=== PATIENT | male | born 1975 | race American Indian/Alaskan Native ===

== ENCOUNTER 2017-09-15 01:33 | Emergency (ER) | payer MEDICARE ==
[2017-09-15 02:39] LABS: Amphetamine Screen,Urine PRESUMPTIVE NEGATIVE; Benzodiazepines Screen,Urine PRESUMPTIVE NEGATIVE; Cannabinoid Screen,Urine PRESUMPTIVE NEGATIVE; Cocaine Screen,Urine PRESUMPTIVE NEGATIVE; Methadone Screen,Urine PRESUMPTIVE NEGATIVE; Opiate Screen,Urine PRESUMPTIVE NEGATIVE
[2017-09-15 02:41] LABS: Bilirubin,Urine NEG (Negative); Blood,Urine NEG (Negative); Color,Urine Yellow (Yellow); Hyaline Casts,Urine 4 /LPF; Mucus,Urine 1+ /HPF; Protein,Urine <15 mg/dL mg/dL (Negative)
[2017-09-15 03:17] LABS: Hematocrit 39.9 % (35.5-45.6); Hemoglobin 13.7 gm/dl (11.8-15.2); Mean Corpuscular HGB Conc 34 % (32-34); Mean Corpuscular Hemoglobin 35 pg (28-32); Mean Corpuscular Volume 102 fl (84-94); Platelet Count 259 K/mm3 (140-440); Red Cell Distribution Width 12.9 % (13.2-15.2)
--- NOTE | 2017-09-15 03:26 | Emergency Department Report ---
ED Psych HPI - General Chief Complaint: Psych Stated Complaint: SUICIDAL IDEATIONS Time Seen by Provider: 09/15/17 03:11 Source: patient, EMS Mode of arrival: Stretcher - History of Present Illness Initial Comments: Patient is a 41 years old male history of schizophrenia. Patient presented to the ER stating that he is been hearing voices commanding him to kill himself by overdosing on prescription medicine. Patient stated that he had previous episode of drug overdose. He denied any visual hallucination or homicidal ideation. MD Complaint: suicidal ideation -: days(s) Associated Psychiatric Symptoms: suicidal ideation, auditory hallucinations Quality: constant Associated Symptoms: denies other symptoms. denies: confusion, headache, shortness of breath, nausea, vomiting, syncope, insomnia Treatments Prior to Arrival: none If Self Harm: admits thoughts of, has plan, intentional overdose - Related Data Home Medications Medication Instructions Recorded Confirmed Last Taken Benztropine [Cogentin] 1 mg PO QHS 09/15/17 09/15/17 09/14/17 OLANzapine [ZyPREXA] 10 mg PO QHS 09/15/17 09/15/17 09/14/17 Allergies Allergy/AdvReac Type Severity Reaction Status Date / Time No Known Allergies Allergy Unverified 09/15/17 01:47 ED Review of Systems ROS: Stated complaint: SUICIDAL IDEATIONS Other details as noted in HPI Comment: All other systems reviewed and negative Constitutional: denies: chills, fever Respiratory: denies: cough, orthopnea, shortness of breath, SOB with exertion, SOB at rest, wheezing Cardiovascular: denies: chest pain, palpitations, dyspnea on exertion Gastrointestinal: denies: abdominal pain, nausea, vomiting, diarrhea, constipation, hematemesis, melena, hematochezia Musculoskeletal: denies: back pain Neurological: denies: headache, weakness, numbness, paresthesias, confusion, abnormal gait ED Past Medical Hx - Past Medical History Previous Medical History?: Yes Hx Psychiatric Treatment: Yes (schizo) - Surgical History Past Surgical History?: Yes Additional Surgical History: left hip - Social History Smoking Status: Never Smoker Substance Use Type: None - Medications Home Medications: Home Medications Medication Instructions Recorded Confirmed Last Taken Type Benztropine [Cogentin] 1 mg PO QHS 09/15/17 09/15/17 09/14/17 History OLANzapine [ZyPREXA] 10 mg PO QHS 09/15/17 09/15/17 09/14/17 History ED Physical Exam - General Limitations: No Limitations General appearance: alert, in no apparent distress - Head Head exam: Present: atraumatic, normocephalic, normal inspection - Eye Eye exam: Present: normal appearance, PERRL Pupils: Present: normal accommodation - ENT ENT exam: Present: normal exam, normal orophraynx, mucous membranes moist - Neck Neck exam: Present: normal inspection, full ROM. Absent: tenderness, meningismus, lymphadenopathy, thyromegaly - Respiratory Respiratory exam: Present: normal lung sounds bilaterally. Absent: respiratory distress, wheezes, rales, rhonchi, stridor, chest wall tenderness, accessory muscle use, decreased breath sounds, prolonged expiratory - Cardiovascular Cardiovascular Exam: Present: regular rate, normal rhythm, normal heart sounds - GI/Abdominal GI/Abdominal exam: Present: soft, normal bowel sounds. Absent: distended, tenderness, guarding, rebound, rigid, organomegaly, mass, bruit, pulsatile mass , hernia - Extremities Exam Extremities exam: Present: normal inspection, full ROM, normal capillary refill - Back Exam Back exam: Present: normal inspection, full ROM. Absent: tenderness, CVA tenderness (R), CVA tenderness (L), muscle spasm, rash noted - Neurological Exam Neurological exam: Present: alert, oriented X3, CN II-XII intact, normal gait - Psychiatric Psychiatric exam: Present: depressed, suicidal ideation. Absent: agitated, manic, homicidal ideation - Skin Skin exam: Present: warm, intact, normal color ED Course Vital Signs 09/15/17 01:46 Temperature 97.9 F Pulse Rate 88 Respiratory 18 Rate Blood Pressure 107/66 [Left] O2 Sat by Pulse 98 Oximetry Critical care attestation.: If time is entered above; I have spent that time in minutes in the direct care of this critically ill patient, excluding procedure time. ED Disposition Clinical Impression: Suicidal ideation Disposition: [id number]/TX-[id number] PSY HOSP/PSY UNIT Is pt being admited?: No Condition: Stable Referrals: PRIMARY CARE, [Primary Care Provider] - 3-5 Days
[2017-09-15 04:09] LABS: BUN/Creatinine Ratio 13; Blood Urea Nitrogen 12 mg/dL (9-20); Calcium 8.6 mg/dL (8.4-10.2); Hemolysis Index 2
[2017-09-15 04:32] LABS: Basophils % (Manual) 0 % (0.0-1.8); Total Cells Counted 100
[2017-09-15 04:33] LABS: Anisocytosis 1+; Hypochromasia 1+; Platelet Estimate Appe
--- NOTE | 2017-09-15 15:32 | Consultation ---
History of Present Illness - Reason for Consult Consult date: 09/15/17 Reason for consult: Initial Psychiatric Evaluation - Chief Complaint Chief complaint: " I started hearing voices and having suicidal thoughts." - History of Present Psychiatric Illness Deangelo is a 41-year-old -[place] male who presents to the emergency room for psychosis and suicidal thoughts. Patient has a past psychiatric history of Schizophrenia (1998). Per patient he is compliant with Zyprexa and Cogentin. Patient reports that a couple of days ago he began to have command auditory hallucinations and depression. He states "the voices are telling me to harm myself and others." He endorses increase anxiety, paranoid thoughts, visual hallucinations, and auditory hallucinations. He reports fair energy, appetite, and sleep. Patient verbalizes that he is unable to concentrate secondary to auditory/visual hallucinations. He denies drug abuse. Current medications: Zyprexa 20 mg by mouth daily at bedtime, Cogentin 2 mg by mouth daily at bedtime Allergies: Haldol-muscle spasms, Risperdal-blurred vision Past psychiatric history: Schizophrenia (1998); more than 5 previous inpatient hospitalizations; no outpatient psychiatrist; 3-4 previous suicide attempts via overdose History of trauma/abuse: Patient denies history of sexual, physical, menstrual abuse. Drugs/alcohol abuse history: Patient denies substance abuse. UDS negative. Social history: 10th grade; Disability-[employer], approximately $700; they're support system; 10 years ( provider is unsure. Patient hesitant when answering the questions); No children. Family history: Patient denies. Medications and Allergies Allergies Allergy/AdvReac Type Severity Reaction Status Date / Time No Known Allergies Allergy Unverified 09/15/17 01:47 Home Medications Medication Instructions Recorded Confirmed Last Taken Type Benztropine [Cogentin] 1 mg PO QHS 09/15/17 09/15/17 09/14/17 History OLANzapine [ZyPREXA] 10 mg PO QHS 09/15/17 09/15/17 09/14/17 History Mental Status Exam - Vital signs Last Vital Signs Temp 97.6 F 09/15/17 09:00 Pulse 74 09/15/17 09:00 Resp 20 09/15/17 09:00 BP 127/73 09/15/17 09:00 Pulse Ox 98 09/15/17 09:00 - Exam Narrative exam: Mental status exam: Gen. appearance: Hospital gown, poorly groomed Behavior: Cooperative Sensorium: Distracted Psychomotor and musculoskeletal activity: Ambulatory Mood: "A little depressed." Anxious, dysphoric, depressed Affect: Constricted Speech/language: Slow, delayed Thought processes: Blocking Thought content: Impoverished, paranoid Perception: Auditory hallucinations-" the voices are telling me to harm people and myself. I hear profanity and spirits talking to me."; Visual hallucinations-"I see shadows and pictures." Suicidal ideation/plan: The plan is to overdose on pills secondary to command auditory hallucinations Homicidal ideation/plan: Patient denies Judgment: Poor Insight: Poor Results Result Diagrams: 09/15/17 02:32 09/15/17 02:32 Abnormal lab results 09/15/17 09/15/17 09/15/17 Range/Units 02:06 02:32 02:32 MCV (84-94) fl MCH (28-32) pg RDW (13.2-15.2) % Seg Neuts % (Manual) (40.0-70.0) % Lymphocytes % (Manual) (13.4-35.0) % Monocytes % (Manual) (0.0-7.3) % Eosinophils % (Manual) (0.0-4.3) % Monocytes # (Manual) (0.0-0.8) K/mm3 Eosinophils # (Manual) (0.0-0.4) K/mm3 Glucose (75-100) mg/dL Ur Specific [place] 1.033 H (1.003-1.030) Salicylates < 0.3 L (2.8-20.0) mg/dL Acetaminophen < 5.0 L (10.0-30.0) ug/mL 18 09/15/17 Range/Units 02:32 02:32 MCV 102 H (84-94) fl MCH 35 H (28-32) pg RDW 12.9 L (13.2-15.2) % Seg Neuts % (Manual) 35.0 L (40.0-70.0) % Lymphocytes % (Manual) 40.0 H (13.4-35.0) % Monocytes % (Manual) 17.0 H (0.0-7.3) % Eosinophils % (Manual) 8.0 H (0.0-4.3) % Monocytes # (Manual) 1.5 H (0.0-0.8) K/mm3 Eosinophils # (Manual) 0.7 H (0.0-0.4) K/mm3 Glucose 103 H (75-100) mg/dL Ur Specific [place]rod (1.003-1.030) Salicylates (2.8-20.0) mg/dL Acetaminophen (10.0-30.0) ug/mL All other labs normal. Assessment and Plan Assessment and plan: Impression: Deangelo is a 41 year old -[place] male who presents to the emergency with psychosis and suicidal thoughts. He has a past psychiatric history of schizophrenia. Today he presents internally preoccupied, distracted , anxious, and paranoid. He endorses suicidal ideations with plans to overdose and VH. He denies homicidal ideation/plan. UDS negative. DDx: Schizophrenia Plan/recommendation: 1. Continue 1013 and reassess in 24 hours. 2. Assist with placement to inpatient psychiatric facility. 3. Start Zyprexa 5mg po QHS for mood/psychosis and Cogentin 1mg po QHS for prevention of EPS. Educated patient on the possible metabolic side effects to medication. Patient verbalizes full understanding.
[2017-09-15] MEDS: COGENTIN PO SCH (22:11)
--- NOTE | 2017-09-16 15:02 | Progress Note ---
Subjective - Reason for Consult Consult date: 09/16/17 Reason for consult: Psychiatry Follow-up - Chief Complaint Chief complaint: "Why me" 41-year-old -[place] male who presents to the emergency room for psychosis and suicidal thoughts. Today the patient is calm during the assessment. He stated that the voices are telling him all types of things. He stated that the voices are overwhelming and because of that, he wanted to kill himself yesterday. He stated that he wish the voices would stop. He would not confirm or deny SI's. He denies HI's and VH's. He denies any side effects of his medications. Mental Status Exam - Vital signs Last Vital Signs Temp 98.6 F 09/16/17 11:21 Pulse 68 09/16/17 11:21 Resp 20 09/16/17 11:21 BP 114/71 09/16/17 11:21 Pulse Ox 98 09/16/17 11:21 - Exam Narrative exam: MSE: Appearance: calm, cooperative Behavior: regular eye contact Speech: regular rate and tone Mood: "okay" withdrawn Affect: flat Thought Process: circumstantial Thought Content: denies HI's and VH's, the patient would not confirm or deny SI 's Motor Activity: ambulatory Cognition: A/O x 3 Insight: poor Judgment: poor Assessment and Plan Impression: Hx of Schizophrenia. Today the patient is calm during the assessment. The patient would not confirm or deny SI's. UDS is negative. DDx: R/O Bipolar DO, Schizoaffective DO, MDD with psychosis Recommendation/Plan: Continue 1013 with placement to inpatient psy services. Continue Zyprexa 5 mg PO HS for mood/psychosis and Cogentin 0.5 mg PO HS for EPS prevention. Discussed possible metabolic side effects of Zyprexa with patient.
[2017-09-16] MEDS: COGENTIN PO SCH (22:20)
--- NOTE | 2017-09-17 12:22 | Progress Note ---
Subjective - Reason for Consult Consult date: 09/17/17 Reason for consult: Psychiatry Follow-up - Chief Complaint Chief complaint: "Hello" 41-year-old -[place] male who presents to the emergency room for psychosis and suicidal thoughts. Today the patient is calm during the assessment. He stated that the voices are still active. During the interview, the patient was looking around, possibly responding to some type of stimuli. He denies HI's and VH's. He stated, "I don't think I'm suicidal." He denies any side effects of his medication. Mental Status Exam - Vital signs Last Vital Signs Temp 97.8 F 09/16/17 20:00 Pulse 85 09/16/17 20:00 Resp 18 09/16/17 20:00 BP 109/77 09/16/17 20:00 Pulse Ox 100 09/16/17 20:00 - Exam Narrative exam: MSE: Appearance: calm, cooperative Behavior: regular eye contact Speech: regular rate and tone Mood: "okay" withdrawn Affect: flat Thought Process: circumstantial Thought Content: denies HI's and VH's Motor Activity: ambulatory Cognition: A/O x 3 Insight: variable Judgment: variable Assessment and Plan Impression: Hx of Schizophrenia. Today the patient is calm during the assessment. The patient would not confirm or deny SI's. UDS is negative. DDx: R/O Bipolar DO, Schizoaffective DO, MDD with psychosis Recommendation/Plan: Continue 1013 with placement to inpatient psy services. Increase Zyprexa to 10 mg PO HS for mood/psychosis and continue Cogentin 1 mg PO HS for EPS prevention. Discussed possible metabolic side effects of Zyprexa with patient.
[2017-09-17] MEDS: COGENTIN PO SCH (22:13)
[2017-09-18] MEDS: COGENTIN PO SCH (22:24)
[2017-09-19 17:54] VITALS: BP 97/61
== END 2017-09-19 11:30 ==
LOC: EEVIPCON 01:33 → ED 01:33
DX: F20.9 Schizophrenia, unspecified (principal); Z79.899 Other long term (current) drug therapy
CPT/HCPCS: 36415; 80048; 80307; 81001; 82962; 85007; 85025; 99285; G0480; 80320

== ENCOUNTER 2018-06-23 15:49 | Emergency (ER) | payer MEDICARE ==
--- NOTE | 2018-06-23 18:25 | Emergency Department Report ---
ED General Adult HPI - General Chief complaint: Psych Stated complaint: HEARING VOICES Time Seen by Provider: 06/23/18 17:27 Source: patient Mode of arrival: Ambulatory Limitations: No Limitations - History of Present Illness Initial comments: Patient presents to emergency department for suicidal ideations. The patient is also complaining of having voices told him to harm himself. Patient denies any homicidal ideation. Patient states the voices aren't telling him exactly what to do but they're telling him to kill himself -: Gradual Severity scale (0 -10): 0 Consistency: constant Improves with: none Worsens with: none Associated Symptoms: denies other symptoms Treatments Prior to Arrival: none - Related Data Home Medications Medication Instructions Recorded Confirmed Last Taken Benztropine [Cogentin] 1 mg PO QHS 09/15/17 06/23/18 09/14/17 OLANzapine [ZyPREXA] 20 mg PO QHS 09/15/17 06/23/18 09/14/17 Allergies Allergy/AdvReac Type Severity Reaction Status Date / Time No Known Allergies Allergy Unverified 09/15/17 01:47 ED Review of Systems ROS: Stated complaint: HEARING VOICES Other details as noted in HPI Comment: All other systems reviewed and negative Constitutional: denies: chills, fever Eyes: denies: eye pain, eye discharge, vision change ENT: denies: ear pain, throat pain Respiratory: denies: cough, shortness of breath, wheezing Cardiovascular: denies: chest pain, palpitations Endocrine: no symptoms reported Gastrointestinal: denies: abdominal pain, nausea, diarrhea Genitourinary: denies: urgency, dysuria Musculoskeletal: denies: back pain, joint swelling, arthralgia Skin: denies: rash, lesions Neurological: denies: headache, weakness, paresthesias Psychiatric: auditory hallucinations, suicidal thoughts. denies: anxiety, depression, visual hallucinations, homicidal thoughts Hematological/Lymphatic: denies: easy bleeding, easy bruising ED Past Medical Hx - Past Medical History Previous Medical History?: Yes Hx Hypertension: Yes Hx Psychiatric Treatment: Yes (paranoid schizophrenia) Hx Asthma: Yes - Surgical History Past Surgical History?: Yes Additional Surgical History: left hip - Social History Smoking Status: Current Every Day Smoker Substance Use Type: None - Medications Home Medications: Home Medications Medication Instructions Recorded Confirmed Last Taken Type Benztropine [Cogentin] 1 mg PO QHS 09/15/17 06/23/18 09/14/17 History OLANzapine [ZyPREXA] 20 mg PO QHS 09/15/17 06/23/18 09/14/17 History ED Physical Exam - General Limitations: No Limitations General appearance: alert, in no apparent distress - Head Head exam: Present: atraumatic, normocephalic - Eye Eye exam: Present: normal appearance, PERRL, EOMI - ENT ENT exam: Present: mucous membranes moist - Neck Neck exam: Present: normal inspection - Respiratory Respiratory exam: Present: normal lung sounds bilaterally. Absent: respiratory distress, wheezes, rales - Cardiovascular Cardiovascular Exam: Present: regular rate, normal rhythm. Absent: systolic murmur, diastolic murmur, rubs, gallop - GI/Abdominal GI/Abdominal exam: Present: soft, normal bowel sounds. Absent: distended, tenderness - Rectal Rectal exam: Present: deferred - Extremities Exam Extremities exam: Present: normal inspection - Back Exam Back exam: Present: normal inspection - Neurological Exam Neurological exam: Present: alert, oriented X3, CN II-XII intact. Absent: motor sensory deficit - Psychiatric Psychiatric exam: Present: suicidal ideation - Skin Skin exam: Present: warm, dry, intact, normal color. Absent: rash ED Course Vital Signs 06/23/18 06/23/18 06/24/18 15:58 19:50 01:10 Temperature 97.8 F 98.1 F 98.3 F Pulse Rate 112 H 94 H 70 Respiratory 16 18 18 Rate Blood Pressure 147/79 Blood Pressure 125/75 100/70 [Left] O2 Sat by Pulse 18 L 95 98 Oximetry 06/24/18 08:32 Temperature 98.7 F Pulse Rate 90 Respiratory 16 Rate Blood Pressure Blood Pressure 122/74 [Left] O2 Sat by Pulse 98 Oximetry ED Medical Decision Making - Lab Data Result diagrams: 06/23/18 18:00 06/23/18 18:00 Lab Results 06/23/18 06/23/18 06/23/18 Range/Units 18:00 18:00 18:00 WBC (4.5-11.0) K/mm3 RBC (3.65-5.03) M/mm3 Hgb (11.8-15.2) gm/dl Hct (35.5-45.6) % MCV (84-94) fl MCH (28-32) pg MCHC (32-34) % RDW (13.2-15.2) % Plt Count (140-440) K/mm3 Lymph # Add Manual Diff Total Counted Seg Neuts % (Manual) (40.0-70.0) % Band Neutrophils % % Lymphocytes % (Manual) (13.4-35.0) % Reactive Lymphs % (Man) % Monocytes % (Manual) (0.0-7.3) % Eosinophils % (Manual) (0.0-4.3) % Basophils % (Manual) (0.0-1.8) % Metamyelocytes % % Myelocytes % % Promyelocytes % % Blast Cells % % Nucleated RBC % Seg Neutrophils # Man (1.8-7.7) K/mm3 Band Neutrophils # K/mm3 Lymphocytes # (Manual) (1.2-5.4) K/mm3 Abs React Lymphs (Man) K/mm3 Monocytes # (Manual) (0.0-0.8) K/mm3 Eosinophils # (Manual) (0.0-0.4) K/mm3 Basophils # (Manual) (0.0-0.1) K/mm3 Metamyelocytes # K/mm3 Myelocytes # K/mm3 Promyelocytes # K/mm3 Blast Cells # K/mm3 WBC Morphology Hypersegmented Neuts Hyposegmented Neuts Hypogranular Neuts Smudge Cells Toxic Granulation Toxic Vacuolation Dohle Bodies Pelger-Huet Anomaly Ruth Rods Platelet Estimate Clumped Platelets Plt Clumps, EDTA Large Platelets Giant Platelets Platelet Satelliting Plt Morphology Comment RBC Morphology Dimorphic RBCs Polychromasia Hypochromasia Poikilocytosis Anisocytosis Microcytosis Macrocytosis Spherocytes Pappenheimer Bodies Sickle Cells Target Cells Tear Drop Cells Ovalocytes Helmet Cells [place]way Bodies [place] Rings Lynne Cells Bite Cells Crenated Cell Elliptocytes Acanthocytes (Spur) Rouleaux Hemoglobin C Crystals Schistocytes Malaria parasites Spenser Bodies Hem Pathologist Commnt Sodium 141 (137-145) mmol/L Potassium 4.1 (3.6-5.0) mmol/L Chloride 103.8 (98-107) mmol/L Carbon Dioxide 26 (22-30) mmol/L Anion Gap 15 mmol/L BUN 11 (9-20) mg/dL Creatinine 0.9 (0.8-1.5) mg/dL Estimated GFR > 60 ml/min BUN/Creatinine Ratio 12 % Glucose 117 H (75-100) mg/dL Calcium 8.6 (8.4-10.2) mg/dL Urine Color (Yellow) Urine Turbidity (Clear) Urine pH (5.0-7.0) Ur Specific [place] (1.003-1.030) Urine Protein (Negative) mg/dL Urine Glucose (UA) (Negative) mg/dL Urine Ketones (Negative) mg/dL Urine Blood (Negative) Urine Nitrite (Negative) Urine Bilirubin (Negative) Urine Urobilinogen (<2.0) mg/dL Ur Leukocyte Esterase (Negative) Urine WBC (Auto) (0.0-6.0) /HPF Urine RBC (Auto) (0.0-6.0) /HPF U Epithel Cells (Auto) (0-13.0) /HPF Urine Mucus /HPF Salicylates < 0.3 L (2.8-20.0) mg/dL Urine Opiates Screen Urine Methadone Screen Acetaminophen < 5.0 L (10.0-30.0) ug/mL Ur Barbiturates Screen Ur Phencyclidine Scrn Ur Amphetamines Screen U Benzodiazepines Scrn Urine Cocaine Screen U Marijuana (THC) Screen Drugs of Abuse Note Plasma/Serum Alcohol (0-0.07) % 06/23/18 06/23/18 06/23/18 Range/Units 18:00 18:00 18:04 WBC 10.0 (4.5-11.0) K/mm3 RBC 3.95 (3.65-5.03) M/mm3 Hgb 13.9 (11.8-15.2) gm/dl Hct 40.3 (35.5-45.6) % MCV 102 H (84-94) fl MCH 35 H (28-32) pg MCHC 35 H (32-34) % RDW 12.8 L (13.2-15.2) % Plt Count 238 (140-440) K/mm3 Lymph # Horticulture Supervisor Add Manual Diff Complete Total Counted 100 Seg Neuts % (Manual) 38.0 L (40.0-70.0) % Band Neutrophils % 0 % Lymphocytes % (Manual) 50.0 H (13.4-35.0) % Reactive Lymphs % (Man) 3.0 % Monocytes % (Manual) 7.0 (0.0-7.3) % Eosinophils % (Manual) 2.0 (0.0-4.3) % Basophils % (Manual) 0 (0.0-1.8) % Metamyelocytes % 0 % Myelocytes % 0 % Promyelocytes % 0 % Blast Cells % 0 % Nucleated RBC % Not Reportable Seg Neutrophils # Man 3.8 (1.8-7.7) K/mm3 Band Neutrophils # 0.0 K/mm3 Lymphocytes # (Manual) 5.0 (1.2-5.4) K/mm3 Abs React Lymphs (Man) 0.3 K/mm3 Monocytes # (Manual) 0.7 (0.0-0.8) K/mm3 Eosinophils # (Manual) 0.2 (0.0-0.4) K/mm3 Basophils # (Manual) 0.0 (0.0-0.1) K/mm3 Metamyelocytes # 0.0 K/mm3 Myelocytes # 0.0 K/mm3 Promyelocytes # 0.0 K/mm3 Blast Cells # 0.0 K/mm3 WBC Morphology Not Reportable Hypersegmented Neuts Not Reportable Hyposegmented Neuts Not Reportable Hypogranular Neuts Not Reportable Smudge Cells Not Reportable Toxic Granulation Not Reportable Toxic Vacuolation Not Reportable Dohle Bodies Not Reportable Pelger-Huet Anomaly Not Reportable Ruth Rods Not Reportable Platelet Estimate Appears normal Clumped Platelets Not Reportable Plt Clumps, EDTA Not Reportable Large Platelets Not Reportable Giant Platelets Not Reportable Platelet Satelliting Not Reportable Plt Morphology Comment Not Reportable RBC Morphology Not Reportable Dimorphic RBCs Not Reportable Polychromasia Not Reportable Hypochromasia Not Reportable Poikilocytosis Not Reportable Anisocytosis Not Reportable Microcytosis Not Reportable Macrocytosis 1+ Spherocytes Not Reportable Pappenheimer Bodies Not Reportable Sickle Cells Not Reportable Target Cells Not Reportable Tear Drop Cells Not Reportable Ovalocytes Not Reportable Helmet Cells Not Reportable [place]-R[place]way Bodies Not Reportable [place] Rings Not Reportable Lynne Cells Not Reportable Bite Cells Not Reportable Crenated Cell Not Reportable Elliptocytes Not Reportable Acanthocytes (Spur) Not Reportable Rouleaux Not Reportable Hemoglobin C Crystals Not Reportable Schistocytes Not Reportable Malaria parasites Not Reportable Spenser Bodies Not Reportable Hem Pathologist Commnt No Sodium (137-145) mmol/L Potassium (3.6-5.0) mmol/L Chloride (98-107) mmol/L Carbon Dioxide (22-30) mmol/L Anion Gap mmol/L BUN (9-20) mg/dL Creatinine (0.8-1.5) mg/dL Estimated GFR ml/min BUN/Creatinine Ratio % Glucose (75-100) mg/dL Calcium (8.4-10.2) mg/dL Urine Color Yellow (Yellow) Urine Turbidity Clear (Clear) Urine pH 5.0 (5.0-7.0) Ur Specific [place] 1.025 (1.003-1.030) Urine Protein <15 mg/dl (Negative) mg/dL Urine Glucose (UA) Neg (Negative) mg/dL Urine Ketones Neg (Negative) mg/dL Urine Blood Neg (Negative) Urine Nitrite Neg (Negative) Urine Bilirubin Neg (Negative) Urine Urobilinogen 4.0 (<2.0) mg/dL Ur Leukocyte Esterase Tr (Negative) Urine WBC (Auto) 2.0 (0.0-6.0) /HPF Urine RBC (Auto) 7.0 (0.0-6.0) /HPF U Epithel Cells (Auto) < 1.0 (0-13.0) /HPF Urine Mucus Few /HPF Salicylates (2.8-20.0) mg/dL Urine Opiates Screen Urine Methadone Screen Acetaminophen (10.0-30.0) ug/mL Ur Barbiturates Screen Ur Phencyclidine Scrn Ur Amphetamines Screen U Benzodiazepines Scrn Urine Cocaine Screen U Marijuana (THC) Screen Drugs of Abuse Note Plasma/Serum Alcohol < 0.01 (0-0.07) % 06/23/18 Range/Units 18:04 WBC (4.5-11.0) K/mm3 RBC (3.65-5.03) M/mm3 Hgb (11.8-15.2) gm/dl Hct (35.5-45.6) % MCV (84-94) fl MCH (28-32) pg MCHC (32-34) % RDW (13.2-15.2) % Plt Count (140-440) K/mm3 Lymph # Add Manual Diff Total Counted Seg Neuts % (Manual) (40.0-70.0) % Band Neutrophils % % Lymphocytes % (Manual) (13.4-35.0) % Reactive Lymphs % (Man) % Monocytes % (Manual) (0.0-7.3) % Eosinophils % (Manual) (0.0-4.3) % Basophils % (Manual) (0.0-1.8) % Metamyelocytes % % Myelocytes % % Promyelocytes % % Blast Cells % % Nucleated RBC % Seg Neutrophils # Man (1.8-7.7) K/mm3 Band Neutrophils # K/mm3 Lymphocytes # (Manual) (1.2-5.4) K/mm3 Abs React Lymphs (Man) K/mm3 Monocytes # (Manual) (0.0-0.8) K/mm3 Eosinophils # (Manual) (0.0-0.4) K/mm3 Basophils # (Manual) (0.0-0.1) K/mm3 Metamyelocytes # K/mm3 Myelocytes # K/mm3 Promyelocytes # K/mm3 Blast Cells # K/mm3 WBC Morphology Hypersegmented Neuts Hyposegmented Neuts Hypogranular Neuts Smudge Cells Toxic Granulation Toxic Vacuolation Dohle Bodies Pelger-Huet Anomaly Ruth Rods Platelet Estimate Clumped Platelets Plt Clumps, EDTA Large Platelets Giant Platelets Platelet Satelliting Plt Morphology Comment RBC Morphology Dimorphic RBCs Polychromasia Hypochromasia Poikilocytosis Anisocytosis Microcytosis Macrocytosis Spherocytes Pappenheimer Bodies Sickle Cells Target Cells Tear Drop Cells Ovalocytes Helmet Cells [place]way Bodies [place] Rings Lynne Cells Bite Cells Crenated Cell Elliptocytes Acanthocytes (Spur) Rouleaux Hemoglobin C Crystals Schistocytes Malaria parasites Spenser Bodies Hem Pathologist Commnt Sodium (137-145) mmol/L Potassium (3.6-5.0) mmol/L Chloride (98-107) mmol/L Carbon Dioxide (22-30) mmol/L Anion Gap mmol/L BUN (9-20) mg/dL Creatinine (0.8-1.5) mg/dL Estimated GFR ml/min BUN/Creatinine Ratio % Glucose (75-100) mg/dL Calcium (8.4-10.2) mg/dL Urine Color (Yellow) Urine Turbidity (Clear) Urine pH (5.0-7.0) Ur Specific [place] (1.003-1.030) Urine Protein (Negative) mg/dL Urine Glucose (UA) (Negative) mg/dL Urine Ketones (Negative) mg/dL Urine Blood (Negative) Urine Nitrite (Negative) Urine Bilirubin (Negative) Urine Urobilinogen (<2.0) mg/dL Ur Leukocyte Esterase (Negative) Urine WBC (Auto) (0.0-6.0) /HPF Urine RBC (Auto) (0.0-6.0) /HPF U Epithel Cells (Auto) (0-13.0) /HPF Urine Mucus /HPF Salicylates (2.8-20.0) mg/dL Urine Opiates Screen Presumptive negative Urine Methadone Screen Presumptive negative Acetaminophen (10.0-30.0) ug/mL Ur Barbiturates Screen Presumptive negative Ur Phencyclidine Scrn Presumptive negative Ur Amphetamines Screen Presumptive negative U Benzodiazepines Scrn Presumptive negative Urine Cocaine Screen Presumptive negative U Marijuana (THC) Screen Presumptive negative Drugs of Abuse Note Disclamer Plasma/Serum Alcohol (0-0.07) % - Medical Decision Making The patient has been medically evaluated and appropriate for psychiatric placement Critical care attestation.: If time is entered above; I have spent that time in minutes in the direct care of this critically ill patient, excluding procedure time. ED Disposition Clinical Impression: Suicidal ideation Disposition: DC/TX-65 PSY HOSP/PSY UNIT Is pt being admited?: No Does the pt Need Aspirin: No Condition: Stable Referrals: SAMANTHA BAILEY MD [Primary Care Provider] - 3-5 Days
[2018-06-23 18:31] LABS: Hematocrit 40.3 % (35.5-45.6); Hemoglobin 13.9 gm/dl (11.8-15.2); Mean Corpuscular HGB Conc 35 % (32-34); Mean Corpuscular Volume 102 fl (84-94); Platelet Count 238 K/mm3 (140-440); Red Blood Count 3.95 M/mm3 (3.65-5.03); Red Cell Distribution Width 12.8 % (13.2-15.2)
[2018-06-23 18:45] LABS: Bilirubin,Urine NEG (Negative); Blood,Urine NEG (Negative); Color,Urine Yellow (Yellow); Mucus,Urine FEW /HPF; Protein,Urine <15 mg/dL mg/dL (Negative)
[2018-06-23 18:52] LABS: BUN/Creatinine Ratio 12; Blood Urea Nitrogen 11 mg/dL (9-20); Calcium 8.6 mg/dL (8.4-10.2); Hemolysis Index 6
[2018-06-23 18:53] LABS: Amphetamine Screen,Urine PRESUMPTIVE NEGATIVE; Benzodiazepines Screen,Urine PRESUMPTIVE NEGATIVE; Cannabinoid Screen,Urine PRESUMPTIVE NEGATIVE; Cocaine Screen,Urine PRESUMPTIVE NEGATIVE; Methadone Screen,Urine PRESUMPTIVE NEGATIVE; Opiate Screen,Urine PRESUMPTIVE NEGATIVE
[2018-06-23 19:42] LABS: Basophils % (Manual) 0 % (0.0-1.8); Total Cells Counted 100
[2018-06-23 19:43] LABS: Macrocytosis 1+
[2018-06-26 11:39] VITALS: BP 122/74
== END 2018-06-24 08:48 ==
LOC: ED 15:49
DX: R44.0 Auditory hallucinations (principal); R45.851 Suicidal ideations
CPT/HCPCS: 36415; 80048; 80307; 81001; 85007; 85025; 99285; G0480; 80320

== ENCOUNTER 2019-08-03 01:18 | Emergency (ER) | payer MEDICARE ==
--- NOTE | 2019-08-03 02:13 | Emergency Department Report ---
<ANA VILLANUEVA - Last Filed: 08/03/19 13:36> ED Psych HPI - General Chief Complaint: Psych Stated Complaint: MH EVAL Time Seen by Provider: 08/03/19 02:07 - Related Data Home Medications Medication Instructions Recorded Confirmed Last Taken Benztropine [Cogentin] 1 mg PO QHS 09/15/17 08/03/19 09/14/17 OLANzapine [ZyPREXA] 20 mg PO QHS 09/15/17 08/03/19 09/14/17 Allergies Allergy/AdvReac Type Severity Reaction Status Date / Time No Known Allergies Allergy Unverified 09/15/17 01:47 ED Past Medical Hx - Medications Home Medications: Home Medications Medication Instructions Recorded Confirmed Last Taken Type Benztropine [Cogentin] 1 mg PO QHS 09/15/17 08/03/19 09/14/17 History OLANzapine [ZyPREXA] 20 mg PO QHS 09/15/17 08/03/19 09/14/17 History ED Course - Reevaluation(s) Reevaluation #3: 08/03/19 13:36 1013 as documented by myself, after evaluation and recommendation from psychiatric liaison, it is recommended for suicidality, hallucinations, and disorganized behavior. ED Medical Decision Making - Lab Data Result diagrams: 08/03/19 01:58 08/03/19 01:58 ED Disposition Clinical Impression: Suicidal ideation, Hallucination UTI (urinary tract infection) Qualifiers: Urinary tract infection type: acute cystitis Hematuria presence: with hematuria Qualified Code(s): N30.01 - Acute cystitis with hematuria Disposition: DC/TX-65 PSY HOSP/PSY UNIT Condition: Stable Referrals: HINSDALE KARENANTIOCH MD PENNY [Primary Care Provider] - 2-3 Days <CANDI AMBROCIO III - Last Filed: 08/03/19 18:54> ED Psych HPI - General Source: patient, EMS Mode of arrival: Ambulatory Limitations: No Limitations - History of Present Illness Initial Comments: Patient is a 43-year-old male that presents emergency room with complaints of [place] hallucinations and suicidal ideations. Patient states his plan is to take more prescription medications and normal. Patient states he has been out of his medication for 4 days. Patient states his symptoms been going on for 3 days. Patient states his symptoms are worsening. Patient states he wants some help. Patient states he has not attempted yet. Patient states the voices are telling him to kill himself. MD Complaint: suicidal ideation, feels depressed -: Sudden, days(s) Associated Psychiatric Symptoms: depression, suicidal ideation, racing thoughts, auditory hallucinations History of same: Yes Quality: constant Improves With: medication Worsens With: other Context: not taking psychiatric Associated Symptoms: denies: confusion, headache, shortness of breath, nausea, vomiting, syncope, insomnia Treatments Prior to Arrival: none If Self Harm: admits thoughts of, has plan ED Review of Systems ROS: Stated complaint: MH EVAL Other details as noted in HPI Constitutional: denies: chills, fever Eyes: denies: eye pain, eye discharge, vision change ENT: denies: ear pain, throat pain Respiratory: denies: cough, shortness of breath, wheezing Cardiovascular: denies: chest pain, palpitations Endocrine: no symptoms reported Gastrointestinal: denies: abdominal pain, nausea, diarrhea Genitourinary: denies: urgency, dysuria Musculoskeletal: denies: back pain, joint swelling, arthralgia Skin: denies: rash, lesions Neurological: denies: headache, weakness, paresthesias Psychiatric: depression, auditory hallucinations, suicidal thoughts Hematological/Lymphatic: denies: easy bleeding, easy bruising ED Past Medical Hx - Past Medical History Previous Medical History?: Yes Hx Hypertension: Yes Hx Psychiatric Treatment: Yes (paranoid schizophrenia) Hx Asthma: Yes Additional medical history: schizophrenia - Surgical History Past Surgical History?: Yes Additional Surgical History: left hip - Family History Family history: no significant - Social History Smoking Status: Current Every Day Smoker Substance Use Type: None ED Physical Exam - General Limitations: No Limitations General appearance: alert, in no apparent distress - Head Head exam: Present: atraumatic, normocephalic - Eye Eye exam: Present: normal appearance - ENT ENT exam: Present: mucous membranes moist - Neck Neck exam: Present: normal inspection - Respiratory Respiratory exam: Present: normal lung sounds bilaterally. Absent: respiratory distress - Cardiovascular Cardiovascular Exam: Present: regular rate, normal rhythm. Absent: systolic murmur, diastolic murmur, rubs, gallop - GI/Abdominal GI/Abdominal exam: Present: soft, normal bowel sounds - Rectal Rectal exam: Present: deferred - Extremities Exam Extremities exam: Present: normal inspection - Back Exam Back exam: Present: normal inspection - Neurological Exam Neurological exam: Present: alert, oriented X3 - Psychiatric Psychiatric exam: Present: depressed, suicidal ideation - Skin Skin exam: Present: warm, dry, intact, normal color. Absent: rash ED Course Vital Signs 08/03/19 08/03/19 02:50 08:02 Temperature 98.8 F 98.2 F Pulse Rate 77 74 Respiratory 18 18 Rate Blood Pressure 120/65 99/64 [Left] O2 Sat by Pulse 98 96 Oximetry - Reevaluation(s) Reevaluation #1: Initial evaluation done. Patient placed on an ER hold. Patient will have labs done and have a mental health evaluation. 08/03/19 02:12 Reevaluation #2: I discussed all results and clinical findings with patient. I discussed plan of care with patient. Patient agrees with plan of care. Patient is medically cleared. Patient's final disposition will come from our mental health and psychiatry team. Patient will remain in the ER as an ER hold until cleared by psych. 08/03/19 04:04 ED Medical Decision Making - Lab Data Result diagrams: 08/03/19 01:58 08/03/19 01:58 - Medical Decision Making Patient is a 43-year-old male that presents emergency room with complaints of 6 psychiatric complaints to include suicidal ideations and audio hallucinations. Patient's audio hallucinations are telling him to kill himself. Patient came with a plan to take an abnormal amount of prescription drugs and overdose. Patient states the voices are telling him to take his prescription medications. Patient states he is off his prescription medications. Patient had labs done and were unremarkable except for a UTI. Patient treated with antibiotics. Patient medically cleared. Patient remained in the ER as an ER hold until patient had the final disposition by our psychiatric team. - Differential Diagnosis Suicidal ideation, hallucinations, psychosis. Critical care attestation.: If time is entered above; I have spent that time in minutes in the direct care of this critically ill patient, excluding procedure time. ED Disposition Is pt being admited?: No Does the pt Need Aspirin: No Time of Disposition: 04:06
[2019-08-03 02:14] LABS: Mean Corpuscular HGB Conc 33 % (32-34); Mean Corpuscular Volume 104 fl (84-94); Platelet Count 273 K/mm3 (140-440); Red Cell Distribution Width 13.3 % (13.2-15.2)
[2019-08-03 02:30] LABS: BUN/Creatinine Ratio 18; Blood Urea Nitrogen 20 mg/dL (9-20); Calcium 9.3 mg/dL (8.4-10.2); Hemolysis Index 17
[2019-08-03 04:09] LABS: Amphetamine Screen,Urine PRESUMPTIVE NEGATIVE; Bacteria,Urine 1+ /HPF (Negative); Benzodiazepines Screen,Urine PRESUMPTIVE NEGATIVE; Bilirubin,Urine NEG (Negative); Blood,Urine NEG (Negative); Calcium Oxalate Crystals,Urine 2+; Cannabinoid Screen,Urine PRESUMPTIVE NEGATIVE; Cocaine Screen,Urine PRESUMPTIVE NEGATIVE; Color,Urine Yellow (Yellow); Methadone Screen,Urine PRESUMPTIVE NEGATIVE; Mucus,Urine 3+ /HPF; Opiate Screen,Urine PRESUMPTIVE NEGATIVE; Protein,Urine <15 mg/dL mg/dL (Negative)
[2019-08-03] MEDS ORDERED: LIDOCAINE-MPF (1%) 10 MG/1 ML VIAL 5 ML INFILTRATI ONE ×2 (04:56→10:25)
[2019-08-03 05:04] LABS: Basophils % (Manual) 0 % (0.0-1.8); Total Cells Counted 100
[2019-08-03 05:05] LABS: Anisocytosis 1+; Platelet Estimate Consistent w Auto
[2019-08-03 08:03] VITALS: BP 99/64
[2019-08-03] MEDS ORDERED: LIDOCAINE-MPF (1%) 10 MG/1 ML VIAL 5 ML ONE (10:19)
== END 2019-08-03 18:36 ==
LOC: EDBD → ED 01:18
DX: R45.851 Suicidal ideations (principal); R44.0 Auditory hallucinations; I10 Essential (primary) hypertension; J45.909 Unspecified asthma, uncomplicated; F32.9 Major depressive disorder, single episode, unspecified; F17.200 Nicotine dependence, unspecified, uncomplicated; Z98.890 Other specified postprocedural states; Z79.899 Other long term (current) drug therapy
CPT/HCPCS: 36415; 80048; 80307; 81001; 85007; 85025; 87086; 96372; 99285; J0696; 80320; G0480

== ENCOUNTER 2019-09-12 00:04 | Emergency (ER) | payer MEDICARE ==
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
[2019-09-12 01:02] LABS: Bilirubin,Urine NEG (Negative); Blood,Urine NEG (Negative); Color,Urine Amber (Yellow); Mucus,Urine 3+ /HPF
[2019-09-12 01:06] LABS: Amphetamine Screen,Urine PRESUMPTIVE NEGATIVE; Benzodiazepines Screen,Urine PRESUMPTIVE NEGATIVE; Cannabinoid Screen,Urine PRESUMPTIVE NEGATIVE; Cocaine Screen,Urine PRESUMPTIVE NEGATIVE; Methadone Screen,Urine PRESUMPTIVE NEGATIVE; Opiate Screen,Urine PRESUMPTIVE NEGATIVE
[2019-09-12 01:14] LABS: Basophils % (Auto) 0.7 % (0.0-1.8); Eosinophils # (Auto) 0.1 K/mm3 (0.0-0.4); Hematocrit 40.7 % (35.5-45.6); Hemoglobin 13.7 gm/dl (11.8-15.2); Lymphocytes # (Auto) 3.7 K/mm3 (1.2-5.4); Lymphocytes % (Auto) 53.4 % (13.4-35.0); Mean Corpuscular HGB Conc 34 % (32-34); Mean Corpuscular Volume 104 fl (84-94); Monocytes # (Auto) 0.6 K/mm3 (0.0-0.8); Monocytes % (Auto) 8.9 % (0.0-7.3); Platelet Count 221 K/mm3 (140-440); Red Blood Count 3.93 M/mm3 (3.65-5.03)
[2019-09-12 01:29] LABS: BUN/Creatinine Ratio 10; Blood Urea Nitrogen 9 mg/dL (9-20); Calcium 9.2 mg/dL (8.4-10.2); Hemolysis Index 11
[2019-09-12] MEDS ORDERED: ZIPRASIDONE MESYLATE 20 MG VIAL IM ONE (20:23)
[2019-09-13] MEDS ORDERED: ZIPRASIDONE MESYLATE 20 MG VIAL IM PRN (07:11)
[2019-09-13] MEDS ORDERED: LORazepam 2 MG/ML VIAL IM PRN (07:11)
--- NOTE | 2019-09-13 11:24 | Consultation ---
History of Present Illness - Reason for Consult Consult date: 09/13/19 Reason for consult: MHE Requesting physician: AMY GOMEZ - Chief Complaint Chief complaint: Hallucination - History of Present Psychiatric Illness Per ED Provider: Patient is 43 years old male with history of schizophrenia. Patient presented to the ER from home via EMS for evaluation of hearing voices telling him to hurt himself. Patient does not have a specific plan. Patient denied homicidal ideation. Patient denied any visual hallucination. HPI Patient is uncooperative for evaluation, displaying both physical and verbal aggression with constant demands to speak to Josephine. Patient also looks very angry and also displaying threatening behavior towards staff. Patient isolated and put in safe room. PAST PSYCHIATRIC HISTORY: Diagnoses: Schizophrenia Suicide attempts or Self-harm behavior: None available Prior psychiatric hospitalizations: Not available Substance Abuse history: Not available Previous psychiatric medications tried: None available Outpatient treatment: Not applicable PAST MEDICAL HISTORY: Family Psychiatric History None reported or documented SOCIAL HISTORY Marital Status: Not available Living Arrangements: Not available Employment Status: Not available Access to guns/weapons: Not available Education: Not available History of Abuse: Not available Legal History: Not available REVIEW OF SYSTEMS ROS cannot be reliably obtained from the patient due to physical aggression and irritation. MENTAL STATUS EXAMINATION General Appearance and Behavior: Age appropriate, fair hygiene, uncooperative with questioning and very irritable Cooperation: Isolated, disengaged, Hostile and Guarded Psychomotor Behavior: Increased Psychomotor agitation Mood: angry and irriated Affect and affective range: Congruent with mood Thought Process: Unassessable Thought Content: Paranoid and delusion Speech: Increased rate and rhythm, pressured and blocking Intellectual Functioning: Fair Suicidal Ideation: Unassessed Homicidal Ideation: Unassessable Impulse Control: Impaired Insight and Judgment: Impaired Memory: Unassessed Attention: Normal Orientation: Alert Assessment and Plan - Psychiatric problem (1) Schizoaffective disorder, bipolar type Current Visit: Yes Status: Acute RECOMMENDATIONS MEDICATIONS: Ativan and Haldol PRN for agitation. Olazanpine 5mg for Schizophrenia acute episode Risks, benefits and alternatives of medications discussed with the patient, questions answered and consent obtained from patient. PSYCHOTHERAPY: Supportive psychotherapy provided MEDICAL: Per primary team DELIRIUM PRECAUTIONS: Please re-orient patient frequently, keep lights on during the day, and minimize benzodiazepines and opiates as these medications could worsen patient's confusion. CITY PLANNING ENGINEER: DISPOSITION: Per primary team; no indication for acute inpatient psychiatric hospitalization at this time LEGAL STATUS: 1013 FOLLOW-UP: Will follow Thank you for the consult. Please contact with any questions and/or concerns. Medications and Allergies Allergies Allergy/AdvReac Type Severity Reaction Status Date / Time haloperidol [From Haldol] Allergy Unknown Verified 09/12/19 00:16 Home Medications Medication Instructions Recorded Confirmed Last Taken Type Benztropine [Cogentin] 1 mg PO QHS 09/15/17 09/12/19 09/14/17 History OLANzapine [ZyPREXA] 20 mg PO QHS 09/15/17 09/12/19 09/14/17 History Active Meds: Active Medications Lorazepam (Ativan) 2 mg IM Q4HR PRN PRN Reason: Agitation Ziprasidone (Geodon) 10 mg IM Q2H PRN PRN Reason: Agitation Mental Status Exam - Vital signs Last Vital Signs Temp 97.6 F 09/13/19 07:56 Pulse 83 09/13/19 07:56 Resp 18 09/13/19 07:56 BP 125/90 09/13/19 07:56 Pulse Ox 96 09/13/19 07:56 Results Result Diagrams: 09/12/19 00:55 09/12/19 00:55 All other labs normal. Assessment and Plan - Psychiatric problem (1) Schizoaffective disorder, bipolar type Current Visit: Yes Status: Acute
[2019-09-13] MEDS ORDERED: HALOPERIDOL LACTATE 5 MG/1 ML INJ IM PRN (11:27)
[2019-09-13] MEDS ORDERED: WATER FOR INJ Sterile (PF) 10 ML ONE (22:56)
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
--- NOTE | 2019-09-15 10:09 | Progress Note ---
Subjective - Reason for Consult Consult date: 09/15/19 Reason for consult: MHE Requesting physician: ANA VILLANUEVA - Chief Complaint Chief complaint: Per ED nurse: Patient is currently sleeping, calm, no signs of respiratory di stress, waiting for placement. HPI Patient seen in shared room with other psych patient, no long in seclusion. Patient cooperative and responded nicely when asked how he was but still not maintaining eye contact. Patient reports feeling better, slept fine over night and eating okay. Patient denies anger or feeling irritated. He denies AVH and also denies SI and HI. When asked if he think she possesses any special power, patient says no. Patient requests desire to be discharged today. Per my evaluation, pt behavior is improving, he no longer requires seclusion. No facility is willing to accept due to high acuity. Will continue to manage here. Will start sleeping medication today. MENTAL STATUS EXAMINATION General Appearance and Behavior: Age appropriate, good hygiene, poor eye contact, cooperative with questioning and very irritable Cooperation: Isolated, disengaged, Hostile and Guarded Psychomotor Behavior: Increased Psychomotor agitation Mood: good Affect and affective range: Congruent with mood Thought Process: Illogical and paranoid Thought Content: No AVH Speech: Increased rate and rhythm, pressured and blocking Intellectual Functioning: Fair Suicidal Ideation: Denies Homicidal Ideation: Denies Impulse Control: Impaired Insight and Judgment: Fair insight Memory: Normal Attention: Normal Orientation: Alert, oriented. Assessment and Plan - Psychiatric problem (1) Schizoaffective disorder, bipolar type Current Visit: Yes Status: Acute RECOMMENDATIONS MEDICATIONS adjustment: Ativan and Haldol PRN for agitation. Olazanpine increased to 10mg for Schizophrenia acute episode. Trazadone 50 mg BID for sedation for improved sleep pattern and Vistaril for anxiety. Risks, benefits and alternatives of medications discussed with the patient, questions answered and consent obtained from patient. PSYCHOTHERAPY: Supportive psychotherapy provided. MEDICAL: Per primary team DELIRIUM PRECAUTIONS: Please re-orient patient frequently, keep lights on during the day, and minimize benzodiazepines and opiates as these medications could worsen patient's confusion. RUBBER COMPOUNDER FORMULATOR: Per medical team DISPOSITION: Indication for acute inpatient psychiatric hospitalization at this time LEGAL STATUS: 1013 FOLLOW-UP: Will follow Thank you for the consult. Please contact with any questions and/or concerns. Mental Status Exam - Vital signs Last Vital Signs Temp 97.8 F 09/15/19 07:44 Pulse 66 09/15/19 07:44 Resp 18 09/15/19 07:44 BP 104/67 09/15/19 07:44 Pulse Ox 97 09/15/19 07:44 Assessment and Plan - Patient Problems (1) Schizoaffective disorder, bipolar type Status: Acute
[2019-09-15] MEDS: traZODone 50 MG TAB PO SCH ×2 (12:48→22:14)
[2019-09-16 07:39] VITALS: BP 110/67
--- NOTE | 2019-09-16 08:54 | Progress Note ---
Subjective - Reason for Consult Consult date: 09/16/19 Reason for consult: MHE Requesting physician: ANA VILLANUEVA - Chief Complaint Chief complaint: Per ED nurse: [id number] Received report from DAISY Nogueira, pt resting quietly on recliner, resp even and non labored, no acute distress noted, no s/s of self harm noted, ambulates as needed to restroom without difficulty. HPI Patient was seen by me this a.m. patient was found in shared room with orders psych patients, no observed behavioral incidents since prior evaluation from yesterday. Patient describes mostly as feeling good has been eating and sleeping well and also compliant with medication feels like he is ready to go home. Per my evaluation, pt behavior as improved, patient has been without incident within the last 48 hours has been able to share room with oral psych remains without any agitative or irritated behavior noted by the nurse. He has been eating and drinking okay and also been compliant with medication MENTAL STATUS EXAMINATION General Appearance and Behavior: Age appropriate, good hygiene, good eye contact, cooperative with questioning and polite Cooperation: cooperative Psychomotor Behavior: normal Psychomotor function. Mood: good Affect and affective range: Congruent with mood Thought Process: Illogical and paranoid Thought Content: No AVH Speech: Increased rate and rhythm, pressured and blocking Intellectual Functioning: Average Suicidal Ideation: Denies Homicidal Ideation: Denies Impulse Control: Impaired Insight and Judgment: Normal insight Memory: Normal Attention: Normal Orientation: Alert, oriented. Assessment and Plan - Psychiatric problem (1) Schizoaffective disorder, bipolar type Current Visit: Yes Status: Acute RECOMMENDATIONS MEDICATIONS: Will discharge with outpt meds Risks, benefits and alternatives of medications discussed with the patient, questions answered and consent obtained from patient. PSYCHOTHERAPY: Supportive psychotherapy provided. MEDICAL: Per primary team DELIRIUM PRECAUTIONS: Please re-orient patient frequently, keep lights on during the day, and minimize benzodiazepines and opiates as these medications could worsen patient's confusion. CLINICAL TEAM MANAGER: No DISPOSITION: No acute Indication for acute inpatient psychiatric hospitalization at this time LEGAL STATUS: rescind 1013 FOLLOW-UP: Will sign off Thank you for the consult. Please contact with any questions and/or concerns. Mental Status Exam - Vital signs Last Vital Signs Temp 97.9 F 09/16/19 07:38 Pulse 85 09/16/19 07:38 Resp 20 09/16/19 07:38 BP 110/67 09/16/19 07:38 Pulse Ox 99 09/16/19 07:38 Assessment and Plan - Patient Problems (1) Schizoaffective disorder, bipolar type Status: Acute
[2019-09-16] MEDS: traZODone 50 MG TAB PO SCH (10:26)
== END 2019-09-16 12:51 | disposition home or self-care (01) ==
LOC: ED 00:04 → EEVIPCON 00:04 → ED 20:26
DX: F25.0 Schizoaffective disorder, bipolar type (principal); J45.909 Unspecified asthma, uncomplicated; Z88.8 Allergy status to other drugs, medicaments and biological substances; Z79.899 Other long term (current) drug therapy; Z98.890 Other specified postprocedural states
CPT/HCPCS: 36415; 80048; 80307; 81001; 85025; 96372; 99285; J2060; J3486; 80320; G0480; Q0177

== ENCOUNTER 2019-09-18 01:01 | Emergency (ER) | payer MEDICARE ==
[2019-09-18 01:54] LABS: Hemoglobin 13.2 gm/dl (11.8-15.2); Mean Corpuscular HGB Conc 34 % (32-34); Mean Corpuscular Volume 103 fl (84-94); Platelet Count 254 K/mm3 (140-440); Red Blood Count 3.79 M/mm3 (3.65-5.03); Red Cell Distribution Width 12.7 % (13.2-15.2)
[2019-09-18 02:08] LABS: BUN/Creatinine Ratio 11; Blood Urea Nitrogen 8 mg/dL (9-20); Calcium 9.1 mg/dL (8.4-10.2); Hemolysis Index 3
[2019-09-18] MEDS ORDERED: LORazepam 2 MG/ML VIAL IM PRN (02:22)
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
[2019-09-18 02:29] LABS: Amphetamine Screen,Urine PRESUMPTIVE NEGATIVE; Benzodiazepines Screen,Urine PRESUMPTIVE NEGATIVE; Cannabinoid Screen,Urine PRESUMPTIVE NEGATIVE; Cocaine Screen,Urine PRESUMPTIVE NEGATIVE; Methadone Screen,Urine PRESUMPTIVE NEGATIVE; Opiate Screen,Urine PRESUMPTIVE NEGATIVE
[2019-09-18 02:30] LABS: Bilirubin,Urine NEG (Negative); Blood,Urine NEG (Negative); Color,Urine Colorless (Yellow); Protein,Urine <15 mg/dL mg/dL (Negative); Urobilinogen,Urine < 2.0 mg/dL (<2.0); WBC,Urine < 1.0 /HPF (0.0-6.0)
[2019-09-18] MEDS ORDERED: SODIUM CHLORIDE 0.9% 1000 ML 2,000 ML IV ONE (03:30)
[2019-09-18] MEDS ORDERED: SODIUM CHLORIDE 0.9% 1000 ML 1,000 ML IV ONE (03:30)
[2019-09-18 03:39] LABS: Basophils % (Manual) 0 % (0.0-1.8); Total Cells Counted 100
[2019-09-18 03:40] LABS: Platelet Estimate Cons; Spherocytes Rare
[2019-09-18 07:59] VITALS: BP 118/70
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
== END 2019-09-18 14:25 | disposition home or self-care (01) ==
LOC: ED 01:01 → EEVIPCON 01:01 → ED 14:25
DX: R45.851 Suicidal ideations (principal); F25.0 Schizoaffective disorder, bipolar type; F91.8 Other conduct disorders; J45.909 Unspecified asthma, uncomplicated; Z98.890 Other specified postprocedural states; Z79.899 Other long term (current) drug therapy; Z88.8 Allergy status to other drugs, medicaments and biological substances
CPT/HCPCS: 36415; 80048; 80307; 81001; 82550; 83735; 85007; 85025; 96372; 99284; J2060; J7030; 80320; G0480

== ENCOUNTER 2021-09-01 22:42 | Emergency (ER) | payer MEDICARE ==
[2021-09-01 22:51] VITALS: BP 130/78
--- NOTE | 2021-09-02 03:49 | Emergency Department Report ---
ED General Adult HPI - General Chief complaint: Abdominal Pain Stated complaint: ABD PAIN Source: patient, EMS Mode of arrival: Stretcher Limitations: No Limitations - History of Present Illness Initial comments: Patient is a 45-year-old -[place] male with a history of chronic paranoid schizophrenia and bipolar disorder presented to the ED requesting for food and asking that he be transported to [facility] where his psychiatrist is. Patient states that he has a history of chronic hallucination due to his baseline chronic paranoid schizophrenia bipolar disorder but he also admits to not being compliant with his medication. Patient denies suicidal or homicidal ideation at this time. Patient also denies chest pain, shortness of breath, abdominal pain, nausea and vomiting or diarrhea, dysuria, urinary frequency and urgency or headache. MD Complaint: Hungry, wants some food and transportation from outside hospital for psychi -: Gradual, year(s) (12) Location: head Radiation: non-radiation Severity scale (0 -10): 0 Consistency: intermittent Improves with: none Worsens with: none Associated Symptoms: denies other symptoms. denies: confusion, chest pain, cough, diaphoresis, fever/chills, headaches, loss of appetite, malaise, nausea/vomiting, rash, shortness of breath, syncope, weakness Treatments Prior to Arrival: none - Related Data Previous Rx's Medication Instructions Recorded Last Taken Type OLANzapine [ZyPREXA] 10 mg PO QHS #30 tablet 09/16/19 Unknown Rx traZODone [Desyrel] 50 mg PO BID #30 tablet 09/16/19 Unknown Rx Allergies Allergy/AdvReac Type Severity Reaction Status Date / Time haloperidol [From Haldol] Allergy Unknown Verified 09/12/19 00:16 risperidone Allergy Unknown Verified 09/18/19 01:13 ED Review of Systems ROS: Stated complaint: ABD PAIN Other details as noted in HPI Constitutional: denies: chills, fever Eyes: denies: eye pain, eye discharge, vision change ENT: denies: ear pain, throat pain Respiratory: denies: cough, shortness of breath, wheezing Cardiovascular: denies: chest pain, palpitations Endocrine: no symptoms reported Gastrointestinal: denies: abdominal pain, nausea, diarrhea Genitourinary: denies: urgency, dysuria Musculoskeletal: denies: back pain, joint swelling, arthralgia Skin: denies: rash, lesions Neurological: denies: headache, weakness, paresthesias Psychiatric: anxiety, auditory hallucinations. denies: depression, homicidal thoughts, suicidal thoughts Hematological/Lymphatic: denies: easy bleeding, easy bruising ED Past Medical Hx - Past Medical History Previous Medical History?: Yes Hx Hypertension: No Hx Psychiatric Treatment: Yes (paranoid schizophrenia bipolar) Hx Asthma: Yes Additional medical history: schizophrenia - Surgical History Past Surgical History?: Yes Additional Surgical History: left hip - Social History Smoking Status: Never Smoker Substance Use Type: None - Medications Home Medications: Home Medications Medication Instructions Recorded Confirmed Last Taken Type OLANzapine [ZyPREXA] 10 mg PO QHS #30 tablet 09/16/19 Unknown Rx traZODone [Desyrel] 50 mg PO BID #30 tablet 09/16/19 Unknown Rx ED Physical Exam - General Limitations: No Limitations General appearance: alert, in no apparent distress, other (Disheveled) - Head Head exam: Present: atraumatic, normocephalic, normal inspection - Eye Eye exam: Present: normal appearance, PERRL, EOMI - ENT ENT exam: Present: normal exam, normal orophraynx, mucous membranes moist, TM's normal bilaterally, normal external ear exam - Neck Neck exam: Present: normal inspection, full ROM - Respiratory Respiratory exam: Present: normal lung sounds bilaterally. Absent: respiratory distress, wheezes, rales, rhonchi, chest wall tenderness, accessory muscle use, prolonged expiratory - Cardiovascular Cardiovascular Exam: Present: regular rate, normal rhythm, normal heart sounds. Absent: systolic murmur, diastolic murmur, rubs, gallop - GI/Abdominal GI/Abdominal exam: Present: soft, normal bowel sounds. Absent: tenderness, guarding, rebound, hyperactive bowel sounds, hypoactive bowel sounds, organomegaly - Extremities Exam Extremities exam: Present: normal inspection, full ROM, normal capillary refill. Absent: tenderness - Back Exam Back exam: Present: normal inspection, full ROM. Absent: tenderness, CVA tenderness (R), CVA tenderness (L), muscle spasm, paraspinal tenderness, vertebral tenderness - Neurological Exam Neurological exam: Present: alert, oriented X3, CN II-XII intact, normal gait, reflexes normal - Psychiatric Psychiatric exam: Present: normal mood, anxious, flat affect. Absent: depressed, agitated, manic, homicidal ideation, suicidal ideation - Skin Skin exam: Present: warm, dry, intact, normal color. Absent: rash ED Course Vital Signs 09/01/21 22:50 Temperature 98 F Pulse Rate 80 Respiratory 16 Rate Blood Pressure 130/78 [Right] O2 Sat by Pulse 99 Oximetry ED Medical Decision Making - Medical Decision Making This is a 45-year-old -[place] male with a history of chronic paranoid schizophrenia and bipolar disorder presented to the ED requesting for food and asking that he be transported to [facility] where his psychiatrist is. Patient states that he has a history of chronic hallucination due to his baseline chronic paranoid schizophrenia bipolar disorder but he also admits to not being compliant with his medication. In the ED, patient is alert and oriented x3 and is not in any distress. Patient is hemodynamically stable. Patient was given food in the ED to eat and was discharged from the ED. Patient was advised to follow-up with his psychiatrist in outside hospital in the next 3 to 5 days for reevaluation. Patient advised return to the ED immediately if symptoms get worse. - Differential Diagnosis Chronic schizophrenia; bipolar disorder; homelessness; Critical care attestation.: If time is entered above; I have spent that time in minutes in the direct care of this critically ill patient, excluding procedure time. ED Disposition Clinical Impression: Chronic schizophrenia, Homelessness unspecified Disposition: 01 HOME / SELF CARE / HOMELESS Is pt being admited?: No Does the pt Need Aspirin: No Condition: Stable Instructions: Schizophrenia, Mindfulness-Based Stress Reduction Additional Instructions: Take your regular medications for mental health, follow-up with your psychiatrist at an outside hospital in 3 to 5 days for reevaluation. Return to the ED immediately if symptoms get worse Referrals: MARY ENGLE MD [Primary Care Provider] - 3-5 Days Time of Disposition: 03:49 Print Language: [id number]
== END 2021-09-02 05:02 | disposition home or self-care (01) ==
LOC: ED 22:42
DX: F25.9 Schizoaffective disorder, unspecified (principal); Z59.00 Homelessness unspecified; J45.909 Unspecified asthma, uncomplicated; Z88.8 Allergy status to other drugs, medicaments and biological substances
CPT/HCPCS: 99283